=== PATIENT | male | born 1980 ===

== ENCOUNTER 2020-12-25 13:42 | Emergency (ER) | payer SELFPAY ==
--- NOTE | 2020-12-25 15:01 | XRay Report ---
CHEST PA AND LATERAL VIEWS INDICATION: hemoptysis. COMPARISON: None. FINDINGS: Support devices: None. Heart: Within normal limits. Lungs/Pleura: There is airspace disease in the lateral right lower lung on the PA view. This may be w ithin the lateral right middle lobe. Left lung is clear. No pleural abnormality. IMPRESSION: 1. Right lower lung airspace disease, likely pneumonia. This may be in the lateral right middle lobe. Signer Name: Joselo Craft MD Signed: 12/25/2020 2:54 PM Workstation Name: [id number]
[2020-12-25 15:17] LABS: Hematocrit 44.6 % (35.5-45.6); Hemoglobin 14.9 gm/dl (11.8-15.2); Mean Corpuscular HGB Conc 34 % (32-34); Mean Corpuscular Volume 86 fl (84-94); Platelet Count 226 K/mm3 (140-440); Red Blood Count 5.19 M/mm3 (3.65-5.03); Red Cell Distribution Width 13.7 % (13.2-15.2)
[2020-12-25 15:42] LABS: Alanine Aminotransferase 13 units/L (7-56); Albumin 4.4 g/dL (3.9-5); BUN/Creatinine Ratio 10; Blood Urea Nitrogen 11 mg/dL (9-20); Calcium 9.4 mg/dL (8.4-10.2); Hemolysis Index 7
[2020-12-25] MEDS ORDERED: IPRATROPIUM/ALBUTEROL SULFATE 3 ML AMPUL.NEB IH ONE (16:08)
[2020-12-25] MEDS ORDERED: dexAMETHasone 20 MG/5 ML VIAL IV ONE (16:08)
[2020-12-25] MEDS ORDERED: cefTRIAXone/NS 1 GM/50 ML 1 GM/50 ML BAG IV ONE (16:08)
--- NOTE | 2020-12-25 17:29 | Emergency Department Report ---
- General Chief Complaint: Nausea/Vomiting/Diarrhea Stated Complaint: CHEST PAIN/COUGHING UP BLOOD Time Seen by Provider: 12/25/20 15:33 Source: patient Mode of arrival: Ambulatory Limitations: No Limitations - History of Present Illness Initial Comments: Patient is a 40-year-old male presents emergency room with points of URI symptoms that began this morning. Patient has associated chills, productive cough, one episode of vomiting, wheezing. He states he saw a trace amount of blood in his mucus. He denies any fever, diarrhea, shortness of breath, leg swelling. He has a past medical history of childhood asthma. He states he is a smoker. No allergies to medications. - Related Data Previous Rx's Medication Instructions Recorded Last Taken Type Albuterol Sulfate [Proventil Hfa] 1 puff IH TID PRN #1 hfa.aer.ad 12/25/20 Unknown Rx Amoxicillin/Potassium Clav 1 each PO BID 10 Days #20 tablet 12/25/20 Unknown Rx [Augmentin 875-125 Tablet] Azithromycin [Zithromax TAB] 250 mg PO QDAY 5 Days #6 tablet 12/25/20 Unknown Rx Prednisone [predniSONE 10 mg 10 mg PO .TAPER #1 tab.ds.pk 12/25/20 Unknown Rx (6-Day Pack, 21 Tabs)] Allergies Allergy/AdvReac Type Severity Reaction Status Date / Time No Known Allergies Allergy Unverified 12/25/20 13:53 ED Review of Systems ROS: Stated complaint: CHEST PAIN/COUGHING UP BLOOD Other details as noted in HPI Comment: All other systems reviewed and negative ED Past Medical Hx - Past Medical History Previous Medical History?: No Additional medical history: BRONCHITIS - Surgical History Past Surgical History?: No - Social History Smoking Status: Never Smoker Substance Use Type: Marijuana - Medications Home Medications: Home Medications Medication Instructions Recorded Confirmed Last Taken Type Albuterol Sulfate [Proventil Hfa] 1 puff IH TID PRN #1 hfa.aer.ad 12/25/20 Unknown Rx Amoxicillin/Potassium Clav 1 each PO BID 10 Days #20 tablet 12/25/20 Unknown Rx [Augmentin 875-125 Tablet] Azithromycin [Zithromax TAB] 250 mg PO QDAY 5 Days #6 tablet 12/25/20 Unknown Rx Prednisone [predniSONE 10 mg 10 mg PO .TAPER #1 tab.ds.pk 06/17/21 Unknown Rx (6-Day Pack, 21 Tabs)] ED Physical Exam - General Limitations: No Limitations General appearance: alert, in no apparent distress - Head Head exam: Present: atraumatic, normocephalic - Eye Eye exam: Present: normal appearance - ENT ENT exam: Present: mucous membranes moist - Respiratory Respiratory exam: Present: wheezes (throughout), prolonged expiratory. Absent: respiratory distress, rales, rhonchi, stridor, chest wall tenderness, accessory muscle use, decreased breath sounds - Cardiovascular Cardiovascular Exam: Present: regular rate, normal rhythm, normal heart sounds. Absent: systolic murmur, diastolic murmur, rubs, gallop - Extremities Exam Extremities exam: Absent: pedal edema, calf tenderness - Neurological Exam Neurological exam: Present: alert, oriented X3 - Psychiatric Psychiatric exam: Present: normal affect, normal mood - Skin Skin exam: Present: warm, dry, intact ED Course Vital Signs 12/25/20 12/25/20 12/25/20 13:55 17:18 17:30 Temperature 99.0 F Pulse Rate 97 H 88 Pulse Rate [ 83 Anterior Bilateral Throughout] Respiratory 20 12 Rate Respiratory 20 Rate [Anterior Bilateral Throughout] Blood Pressure 140/92 Blood Pressure 168/110 [Left] O2 Sat by Pulse 95 100 Oximetry ED Medical Decision Making - Lab Data Result diagrams: 12/25/20 14:33 12/25/20 14:33 Lab Results 12/25/20 12/25/20 Range/Units 14:33 14:33 WBC 20.8 H (4.5-11.0) K/mm3 RBC 5.19 H (3.65-5.03) M/mm3 Hgb 14.9 (11.8-15.2) gm/dl Hct 44.6 (35.5-45.6) % MCV 86 (84-94) fl MCH 29 (28-32) pg MCHC 34 (32-34) % RDW 13.7 (13.2-15.2) % Plt Count 226 (140-440) K/mm3 Sodium 137 (137-145) mmol/L Potassium 4.1 (3.6-5.0) mmol/L Chloride 97.7 L (98-107) mmol/L Carbon Dioxide 29 (22-30) mmol/L Anion Gap 14 mmol/L BUN 11 (9-20) mg/dL Creatinine 1.1 (0.8-1.3) mg/dL Estimated GFR > 60 ml/min BUN/Creatinine Ratio 10 % Glucose 162 H (75-100) mg/dL Calcium 9.4 (8.4-10.2) mg/dL Total Bilirubin 0.70 (0.1-1.2) mg/dL AST 21 (5-40) units/L ALT 13 (7-56) units/L Alkaline Phosphatase 102 (35-129) units/L Total Protein 7.5 (6.3-8.2) g/dL Albumin 4.4 (3.9-5) g/dL Albumin/Globulin Ratio 1.4 % Vital Signs 12/25/20 12/25/20 12/25/20 13:55 17:18 17:30 Temperature 99.0 F Pulse Rate 97 H 88 Pulse Rate [ 83 Anterior Bilateral Throughout] Respiratory 20 12 Rate Respiratory 20 Rate [Anterior Bilateral Throughout] Blood Pressure 140/92 Blood Pressure 168/110 [Left] O2 Sat by Pulse 95 100 Oximetry - Radiology Data Radiology results: report reviewed Ordering Physician: LAURI FREIRE Date of Service: 12/25/20 Procedure(s): XR chest routine 2V Accession Number(s): [id number] cc: LAURI FREIRE Fluoro Time In Minutes: CHEST PA AND LATERAL VIEWS INDICATION: hemoptysis. COMPARISON: None. FINDINGS: Support devices: None. Heart: Within normal limits. Lungs/Pleura: There is airspace disease in the lateral right lower lung on the PA view. This may be within the lateral right middle lobe. Left lung is clear. No pleural abnormality. IMPRESSION: 1. Right lower lung airspace disease, likely pneumonia. This may be in the lateral right middle lobe. Signer Name: Joselo Craft MD Signed: 12/25/2020 2:54 PM Workstation Name: [id number] Transcribed By: JESSICA Dictated By: Joselo Carft MD Electronically Authenticated By: Joselo Craft MD Signed Date/Time: 12/25/201453 DD/ 53 TD/TT: - Medical Decision Making Patient is a 40-year-old male presents emergency room with points of URI symptoms that began this morning. Patient has associated chills, productive cough, one episode of vomiting, wheezing. He states he saw a trace amount of blood in his mucus. He denies any fever, diarrhea, shortness of breath, leg swelling. He has a past medical history of childhood asthma. He states he is a smoker. No allergies to medications. Vitals are stable. No hypoxia, no tachycardia, patient is afebrile. On exam patient has wheezing throughout. Chest x-ray: 1. Right lower lung airspace disease, likely pneumonia. This may be in the lateral right middle lobe. Labs significant for leukocytosis at 20,000, mild elevation in blood glucose at 162. Patient given dexamethasone, ceftriaxone, nebulizer treatment in the ED. On reexamination patient is feeling much better and ready to go home, wheezing has significantly improved. Patient given prescription for medications. Advised patient Please take medication as prescribed. Follow-up with a primary care doctor. Return to emergency room immediately for any new or worsening symptoms. discussed strict return precautions. Critical care attestation.: If time is entered above; I have spent that time in minutes in the direct care of this critically ill patient, excluding procedure time. ED Disposition Clinical Impression: Pneumonia Qualifiers: Pneumonia type: due to unspecified organism Laterality: right Lung location: lower lobe of lung Qualified Code(s): J18.9 - Pneumonia, unspecified organism Disposition: DC-01 TO HOME OR SELFCARE Is pt being admited?: No Does the pt Need Aspirin: No Condition: Stable Instructions: Community-Acquired Pneumonia, Adult, Bacterial Pneumonia (ED) Additional Instructions: Please take medication as prescribed. Follow-up with a primary care doctor. Return to emergency room immediately for any new or worsening symptoms. Prescriptions: Amoxicillin/Potassium Clav [Augmentin 875-125 Tablet] 1 each PO BID 10 Days #20 tablet Prednisone [predniSONE 10 mg (6-Day Pack, 21 Tabs)] 10 mg PO .TAPER #1 tab.ds.pk Albuterol Sulfate [Proventil Hfa] 1 puff IH TID PRN #1 hfa.aer.ad PRN Reason: shortness of breath/wheezing Azithromycin [Zithromax TAB] 250 mg PO QDAY 5 Days #6 tablet Referrals: LENA ROWELL MD [Primary Care Provider] - 2-3 Days CAMERON NORMAN MD [Staff Physician] - 2-3 Days [facility] [Provider Group] - 2-3 Days Time of Disposition: 17:31 Print Language: GHANAIAN
[2020-12-25 17:31] VITALS: BP 168/110
[2020-12-25 17:34] LABS: Band Neutrophils # (Manual) 0.2 K/mm3; Platelet Estimate Consistent w Auto; RBC Morphology Normal; Total Cells Counted 100
--- NOTE | 2020-12-26 19:40 | Electrocardiograph Report ---
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
== END 2020-12-25 18:01 | disposition home or self-care (01) ==
LOC: ED 13:42
DX: J18.9 Pneumonia, unspecified organism (principal); F12.90 Cannabis use, unspecified, uncomplicated; Z79.899 Other long term (current) drug therapy
CPT/HCPCS: 36415; 71046; 80053; 85007; 85025; 93005; 94640; 96365; 96375; 99284; J0696; J1100; 94644